=== PATIENT | male | born 2000 | race Caucasian/White ===

== ENCOUNTER 2021-02-03 19:00 | Emergency (ER) | payer OTHER ==
[~2021-02-03] VITALS: Ht 180.3 cm; Wt 68.0 kg
[2021-02-03] MEDS ORDERED: Bactrim Ds Tab1 EACH PO (22:17)
== END 2021-02-03 22:25 | disposition home or self-care (01) ==
LOC: ER 19:00
DX: H60.02 Abscess of left external ear (principal); H60.12 Cellulitis of left external ear; Z88.0 Allergy status to penicillin; Z91.018 Allergy to other foods
CPT/HCPCS: 69000; 99283-25